=== PATIENT | male | born 1945 | race Caucasian/White ===

== ENCOUNTER 2021-04-29 05:06 | Emergency (ER) | payer MEDICARE, OTHER ==
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
[2021-04-29] MEDS ORDERED: Sodium Chloride 0.9% 10 ML Syringe FLUSH PRN (05:51)
[2021-04-29] MEDS ORDERED: Tamsulosin 0.4 MG Cap.ER PO ONE (06:16)
[2021-04-29 06:19] LABS: ANION GAP 14.2 mmol/L (5-15); CHLORIDE,CL 104 mmol/L (98-107); SODIUM,NA 140 mmol/L (136-145)
== END 2021-04-29 06:49 | disposition home or self-care (01) ==
LOC: KA.ED 05:06
DX: N40.1 Benign prostatic hyperplasia with lower urinary tract symptoms (principal); R33.9 Retention of urine, unspecified; Z87.891 Personal history of nicotine dependence
CPT/HCPCS: 51702; 80053; 81001; 85025; 99283-25; 99284; A9270-GY

== ENCOUNTER 2022-07-14 11:04 | Emergency (ER) | payer OTHER ==
[2022-07-14] MEDS ORDERED: Iopamidol 755 Mg/ML 75 ML Bottle IV ONE (12:44)
[2022-07-14] MEDS ORDERED: Sodium Chloride 0.9% 50 ML IV ONE (12:44)
[2022-07-31 09:37] LABS: ANION GAP 9.8 mmol/L (5-15); CHLORIDE,CL 105 mmol/L (98-115); ESTIMATED GFR 93 mL/min (>=60); SODIUM,NA 139 mmol/L (136-145)
== END 2022-07-14 14:20 ==
LOC: KA.ED 11:04
DX: R10.32 Left lower quadrant pain (principal)
CPT/HCPCS: 36415; 74177; 80053; 81001; 83690; 85025; 99284; Q9967